=== PATIENT | female | born 1950 | race Caucasian/White ===

== ENCOUNTER 2016-11-09 16:02 | Inpatient (IN) | payer OTHER, MEDICARE ==
[~2016-11-09] VITALS: Ht 154.9 cm; Wt 63.5 kg
[2016-11-09 16:00] VITALS: O2SAT 100
[2016-11-09] MEDS ORDERED: PROPOFOL 1000 MG/100 ML INJ 100 ML ONE (16:07)
[2016-11-09] MEDS ORDERED: ceFAZolin 2 GM PREMIX 50 ML ONE (16:15)
[2016-11-09 16:27] LABS: I-STAT POTASSIUM 4.5 MMOL/L (3.5-4.9)
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
[2016-11-09 16:31] LABS: BASOPHIL # 0.1 TH/MM3 (0-0.2); BASOPHIL % 0.7 % (0.0-2.0); EOSINOPHIL # 0.1 TH/MM3 (0-0.4); EOSINOPHIL % 1.2 % (0.0-4.0); HEMO FLAGS DIFF FINAL; LYMPHOCYTE # 2.5 TH/MM3 (1.0-4.8); MEAN CELL VOLUME 89.7 FL (80.0-100.0); MEAN CORPUSCULAR HEMOGLOBIN 30.6 PG (27.0-34.0); MEAN CORPUSCULAR HGB CONC 34.1 % (32.0-36.0); MONO % 6.2 % (0.0-8.0); NEUT % 69.9 % (16.0-70.0); PLATELET COUNT 271 TH/MM3 (150-450); RED BLOOD COUNT 4.12 MIL/MM3 (4.00-5.30); RED CELL DISTRIBUTION WIDTH 13.4 % (11.6-17.2); WHITE BLOOD COUNT 11.4 TH/MM3 (4.0-11.0)
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
[2016-11-09 16:40] VITALS: BP 145/86; PULSE 75; RESP 18; O2SAT 98
[2016-11-09 16:41] VITALS: O2SAT 97
[2016-11-09] MEDS ORDERED: IOHEXOL 350 MG/ML 10 ML VIAL (for RAD DIAG) IV ONE (16:41)
[2016-11-09] MEDS ORDERED: ceFAZolin 2 GM PREMIX 50 ML IV STA (16:44)
[2016-11-09] MEDS ORDERED: DIPHTH/TETANUS/ACEL PERTUSSIS (BOOSTER) 0.5 ML VIAL/PFS IM ONE (16:44)
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
[2016-11-09] MEDS ORDERED: SIMV80TA PO (16:45)
[2016-11-09] MEDS ORDERED: ALPR0.25 PO (16:45)
[2016-11-09] MEDS ORDERED: ASPI1TAB69 PO (16:45)
[2016-11-09] MEDS ORDERED: LISI10TA3 PO (16:45)
[2016-11-09] MEDS ORDERED: PARO20TA2 PO (16:45)
[2016-11-09 16:50] LABS: APTT (PATIENT) 18.4 SEC (24.3-30.1); INTERNATIONAL NORMALIZED RATIO 0.9 RATIO; PROTHROMBIN TIME - PATIENT 9.8 SEC (9.8-11.6)
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
[2016-11-09] MEDS ORDERED: MORPHINE SULFATE 4 MG/ML INJ IV PUSH ONE (17:45)
[2016-11-09] MEDS ORDERED: ENALAPRILAT 1.25 MG/ML VIAL IV PRN (17:45)
[2016-11-09] MEDS ORDERED: SODIUM CHLORIDE 0.9% FLUSH 10 ML FLUSH IV FLUSH PRN (17:45)
[2016-11-09] MEDS ORDERED: ACETAMINOPHEN/HYDROcodone 325 MG/5 MG TAB PO PRN ×2 (17:45)
[2016-11-09 18:03] VITALS: BP 133/83; PULSE 74; RESP 18; O2SAT 94
[2016-11-09] MEDS: SODIUM CHLOR 0.9% 1000 ML INJ 1,000 ML IV SCH (18:28)
[2016-11-09] MEDS: PANTOPRAZOLE SODIUM 40 MG VIAL IVP SCH (18:28)
[2016-11-09 20:35] VITALS: BP 133/76; PULSE 75; RESP 21; O2SAT 96
[2016-11-09] MEDS: DOCUSATE SODIUM 100 MG CAP PO SCH (20:59)
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
[2016-11-10] VITALS (9 sets, daily range): BP systolic 86–120; BP diastolic 56–81; PULSE 67–87; RESP 16–19; TEMP 96.3–97.4; O2SAT 94–97
[2016-11-10] MEDS: MORPHINE SULFATE 4 MG/ML INJ IV PRN ×2 (01:56→08:25)
[2016-11-10] MEDS: ONDANSETRON HCL 4 MG/2 ML VIAL IV PRN ×2 (01:57→08:25)
[2016-11-10] MEDS: SODIUM CHLOR 0.9% 1000 ML INJ 1,000 ML IV SCH ×2 (03:38→13:18)
[2016-11-10] MEDS ORDERED: CHLORHEXIDINE GLUCONATE 2 % 1 PACK (2 CLOTHS) TOPICAL PRN (04:30)
[2016-11-10] MEDS ORDERED: SODIUM CHLORID 0.9% 500 ML IV PRN (04:30)
[2016-11-10] MEDS ORDERED: LACTATED RINGER'S 1000 ML IV PRN (04:30)
[2016-11-10] MEDS ORDERED: POVIDONE IODINE 5% (ANTISEPSIS KIT) 4 APPLICATIONS EACH NARE PRN (04:30)
[2016-11-10] MEDS ORDERED: INSULIN HUMAN REGULAR 1,000 UNITS/10 ML VIAL SQ PRN (04:30)
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
[2016-11-10 06:25] LABS: AUTOMATED NEUTROPHIL # 4.6 TH/MM3 (1.8-7.7); BASOPHIL % 0.4 % (0.0-2.0); EOSINOPHIL # 0.2 TH/MM3 (0-0.4); EOSINOPHIL % 2.3 % (0.0-4.0); HEMO FLAGS DIFF FINAL; LYMPH % 26.8 % (9.0-44.0); MEAN CELL VOLUME 89.6 FL (80.0-100.0); MEAN CORPUSCULAR HEMOGLOBIN 30.8 PG (27.0-34.0); MEAN CORPUSCULAR HGB CONC 34.4 % (32.0-36.0); MONO % 9.4 % (0.0-8.0); NEUT % 61.1 % (16.0-70.0); PLATELET COUNT 222 TH/MM3 (150-450); RED BLOOD COUNT 3.57 MIL/MM3 (4.00-5.30); RED CELL DISTRIBUTION WIDTH 13.6 % (11.6-17.2); WHITE BLOOD COUNT 7.5 TH/MM3 (4.0-11.0)
[2016-11-10 06:45] LABS: ALKALINE PHOSPHATASE 64 U/L (45-117); ALT (GPT) 50 U/L (10-53); ANION GAP 5 MEQ/L (5-15); AST (GOT) 101 U/L (15-37); BICARBONATE 24.8 MEQ/L (21.0-32.0); BLOOD UREA NITROGEN 10 MG/DL (7-18); CHLORIDE 109 MEQ/L (98-107); GLOMERULAR FILTRATION RATE 83 ML/MIN (>89); POTASSIUM 4.1 MEQ/L (3.5-5.1); SODIUM (NA) 139 MEQ/L (136-145); TOTAL BILIRUBIN ADULT 0.5 MG/DL (0.2-1.0)
[2016-11-10] MEDS: DOCUSATE SODIUM 100 MG CAP PO SCH (08:32)
[2016-11-10] MEDS: DOCUSATE SODIUM 50 MG/SENNA 8.6 MG TAB PO SCH ×3 (09:13→21:53)
--- NOTE | 2016-11-10 10:31 | RADRPT ---
EXAM DATE/TIME: 11/10/2016 09:43 [facility] COMPARISON: CT THORAX W CONTRAST, November 09, 2016, 16:21. CHEST SINGLE AP, November 09, 2016, 15:56. INDICATIONS : Rib fractures. MEDICAL HISTORY : None. SURGICAL HISTORY : None. ENCOUNTER: Subsequent ACUITY: 2 days PAIN SCORE: 10/10 LOCATION: Bilateral chest FINDINGS: Portable AP view of the chest demonstrates a normal-sized cardiac silhouette. There is elevation the right hemidiaphragm. There are linear opacities at both lung bases. No effusion, consolidation, or pn eumothorax is identified. The bones and soft tissues demonstrate no acute finding. No rib fracture is identified. CONCLUSION: 1. No rib fracture is identified. Comparing with prior CT also demonstrates no definite rib fracture. 2. Atelectasis at both lung bases. Harrison Jennings MD on November 10, 2016 at 10:27 Board Certified Radiologist. This report was verified electronically.
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
[2016-11-10] MEDS ORDERED: SIMVASTATIN 80 MG PO SCH (11:15)
[2016-11-10] MEDS: LISINOPRIL 10 MG TAB PO SCH (11:36)
[2016-11-10] MEDS: PARoxetine HCL 20 MG TAB PO SCH (11:36)
[2016-11-10] MEDS ORDERED: PROPOFOL 200 MG/20 ML AMP IV ONE (12:00)
[2016-11-10] MEDS ORDERED: PHENYLEPH/NS 1000 MCG/10 ML SYR IV ONE (12:00)
[2016-11-10] MEDS ORDERED: ONDANSETRON HCL 4 MG/2 ML VIAL IV PUSH ONE (12:00)
[2016-11-10] MEDS ORDERED: NEOSTIGMINE 3 MG/3 ML SYR IV ONE (12:00)
[2016-11-10] MEDS ORDERED: ePHEDrine/NS 25 MG/5 ML SYR IV ONE (12:00)
[2016-11-10] MEDS: POLYETHYLENE GLYCOL 17 GM PKG PO SCH (13:00)
[2016-11-10] MEDS ORDERED: FAMOTIDINE 20 MG/2 ML VIAL ONE (13:06)
[2016-11-10] MEDS ORDERED: ACETAMINOPHEN 1000 MG/100 ML VIAL IV ONE (13:06)
[2016-11-10] MEDS ORDERED: DEXAMETHASONE SOD PHOS 4 MG/ML VIAL ONE (13:07)
[2016-11-10] MEDS ORDERED: MIDAZOLAM HCL 2 MG/2 ML VIAL ONE (13:07)
[2016-11-10] MEDS ORDERED: fentaNYL CITRATE 250 MCG/5 ML AMP ONE (13:07)
[2016-11-10] MEDS ORDERED: VANCOMYCIN HCL 1000 MG VIAL OTHER ONE (13:51)
[2016-11-10] MEDS ORDERED: ceFAZolin INJ 1,000 MG VIAL IV ONE (14:01)
[2016-11-10] MEDS ORDERED: GENTAMICIN SULFATE 80 MG/2 ML VIAL IRRIGATION ONE (14:04)
--- NOTE | 2016-11-10 14:59 | HHI.PR ---
Subjective Subjective Notes Awaiting OR for ankle fx repair Complains of right rib pain Objective Vitals/I&O Vital Signs Date Time Temp Pulse Resp B/P Pulse Ox O2 Delivery O2 Flow Rate FiO2 11/10/16 12:00 97.0 70 18 120/76 95 11/10/16 08:12 Nasal Cannula 2.00 Labs Laboratory Tests Test 11/09/16 11/10/16 16:10 05:58 White Blood Count 11.4 7.5 Red Blood Count 4.12 3.57 Hemoglobin 12.6 11.0 Bedside Hemoglobin 12.9 Hematocrit 37.0 32.0 Bedside Hematocrit 38.0 Mean Corpuscular Volume 89.7 89.6 Mean Corpuscular Hemoglobin 30.6 30.8 Mean Corpuscular Hemoglobin 34.1 34.4 Concent Red Cell Distribution Width 13.4 13.6 Platelet Count 271 222 Mean Platelet Volume 6.9 6.7 Neutrophils (%) (Auto) 69.9 61.1 Lymphocytes (%) (Auto) 22.0 26.8 Monocytes (%) (Auto) 6.2 9.4 Eosinophils (%) (Auto) 1.2 2.3 Basophils (%) (Auto) 0.7 0.4 Neutrophils # (Auto) 8.0 4.6 Lymphocytes # (Auto) 2.5 2.0 Monocytes # (Auto) 0.7 0.7 Eosinophils # (Auto) 0.1 0.2 Basophils # (Auto) 0.1 0.0 CBC Comment DIFF FINAL DIFF FINAL Differential Comment Prothrombin Time 9.8 Prothromb Time International 0.9 Ratio Activated Partial 18.4 Thromboplast Time Bedside Sodium 137 Bedside Potassium 4.5 Bedside Chloride 105 Bedside Blood Urea Nitrogen 19 Bedside Creatinine 0.6 Bedside Glucose 128 Blood Type AB NEGATIVE Antibody Screen NEGATIVE Sodium Level 139 Potassium Level 4.1 Chloride Level 109 Carbon Dioxide Level 24.8 Anion Gap 5 Blood Urea Nitrogen 10 Creatinine 0.62 Estimat Glomerular Filtration 83 Rate Random Glucose 93 Calcium Level 8.0 Total Bilirubin 0.5 Aspartate Amino Transf 101 (AST/SGOT) Alanine Aminotransferase 50 (ALT/SGPT) Alkaline Phosphatase 64 Total Protein 5.9 Albumin 3.1 Radiology Last Impressions Chest X-Ray 11/10/16 0000 Signed Impressions: Service Date/Time: Thursday, November 10, 2016 09:43 - CONCLUSION: 1. No rib fracture is identified. Comparing with prior CT also demonstrates no definite rib fracture. 2. Atelectasis at both lung bases. Harrison Jennings MD Pelvis X-Ray 11/09/16 1615 Signed Impressions: Service Date/Time: Wednesday, November 09, 2016 15:56 - CONCLUSION: Negative trauma study. Alber Lopez MD Head CT 11/09/161614 Signed Impressions: Service Date/Time: Wednesday, November 09, 2016 16:17 - CONCLUSION: Negative trauma study. Alber Lopez MD Chest CT 11/09/161614 Signed Impressions: Service Date/Time: Wednesday, November 09, 2016 16:21 - CONCLUSION: 1. Atelectasis in the dependent portions of the lung bases. There is no pneumothorax. 2. No evidence of visceral injury. Alber Lopez MD ADDENDUM: This case was reviewed to evaluate for possible rib fractures. The original trauma chest x-ray indicated bilateral rib fractures. However, none are identified on this original chest CT report. After detailed review of the ribs on the current examination, no rib fracture is visualized. Harrison Jennings MD Cervical Spine CT 11/09/165 Signed Impressions: Service Date/Time: Wednesday, November 09, 2016 16:18 - CONCLUSION: Negative trauma CT. Alber Lopez MD Abdomen/Pelvis CT 11/09/161614 Signed Impressions: Service Date/Time: Wednesday, November 09, 2016 16:21 - CONCLUSION: 1. Distal infrarenal abdominal aortic aneurysm measuring up to 3.5 x 3.4 cm. 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 2. No evidence of acute visceral injury. 3. Bilateral pars defects at the L5-S1 level with grade 1 anterospondylolisthesis. Alber Lopez MD Tibia/Fibula X-Ray 11/09/16 0000 Signed Impressions: Service Date/Time: Wednesday, November 09, 2016 15:56 - CONCLUSION: Fracture dislocation of the ankle as described. Alber Lopez MD Ankle X-Ray 11/09/16 0000 Signed Impressions: Service Date/Time: Wednesday, November 09, 2016 15:56 - CONCLUSION: Reduction of the previously noted fracture dislocation. Alber Lopez MD Narrative Exam GENERAL: 59-year-old well-nourished, well developed female lying in bed. SKIN: Warm and dry. HEAD: Normocephalic. ENT: No nasal bleeding or discharge. Mucous membranes pink and moist. NECK: Trachea midline. No JVD. CARDIOVASCULAR: Regular rate and rhythm. RESPIRATORY: No accessory muscle use. Lungs clear to auscultation. Breath sounds equal bilaterally. GASTROINTESTINAL: Abdomen soft, non-tender, nondistended. + BS. MUSCULOSKELETAL: Extremities without cyanosis, or edema. LLE soft splint in place. Good cap refill, sensation LLE. NEUROLOGICAL: Awake and alert. Normal speech. A/P Assessment and Plan INJURIES: LEFT ankle fx BILAT atelectasis vs aspiration Incidental AAA 3.5 x 3.4cm and Right common iliac artery aneurysm 2.3cm PMHx: Hyperlipidemia, hypertension, depression Diet: NPO Pulmonary: IS, encourage patient use Pain: [place] 1-2 tabs, IV Morphine. Pain controlled. Activity: BR. PT ordered. GI: IV Protonix Bowel: Yolanda-colace, Miralax. No BM yet DVT: SCDs Home medications resumed Initial CXR indicated bilateral rib fxs. Repeated CXR today is negative for rib fxs. Orthopedics plans to repair left ankle fracture today. Hyperglycemialow dose SSI. Consult vascular surgery to evaluate AAA and iliac artery aneurysm Plan of care discussed with patient at bedside. The exam, history, and the medical decision-making described in the above note were completed with the assistance of the mid-level provider. I reviewed and agree with the findings presented. I attest that I had a [id number] encounter with the patient on the same day, and personally performed and documented my assessment and findings in the medical record. Lila Rush Nov 10, 2016 14:59 Eugene Johnson MD Nov 11, 2016 07:39
[2016-11-10] MEDS ORDERED: Post-op Orders (for Pharmacy) MISC XX ONE (15:00)
--- NOTE | 2016-11-10 15:01 | PD.OP ---
cc: Leonard Cooley MD Operative Report Date of Surgery: Nov 10, 2016 Preoperative Diagnosis: Displaced left ankle trimalleolar fracture Postoperative Diagnosis: Same Procedure: Open reduction internal fixation left ankle fracture, open reduction internal fixation left ankle syndesmosis Anesthesia: Gen. Surgeon: Leonard Cooley Bow Maker Production(s): Alverto Menjivar PA-C The surgical procedure was assisted by my physician outpatient physical therapist assistant. My P.A. presence was necessary throughout this case for the manipulation and positioning of the surgical extremity. My P.A. was assisting me throughout the duration of this procedure. The skill set of a physician outpatient physical therapist assistant was medically necessary to complete this procedure. During the surgical case the game technician was working at the back table and the physician outpatient physical therapist assistant was directly assisting me. Operation and Findings: Patient was seen and evaluated preoperatively and found to have a displaced left trimalleolar ankle fracture. Informed consent was obtained after a detailed discussion of risk and benefits of surgery. The operative site was marked. Patient was brought to the OR, placed on the OR table, and given IV sedation and general endotracheal anesthesia. IV antibiotics were given preoperatively. A timeout procedure was performed. The left leg was prepped with alcohol followed by Hibiclens and draped in the usual sterile fashion. Attention was turned towards the distal fibula. A four-inch incision was made over the distal fibula. The subcutaneous tissue was dissected with Bovie. The fracture site was visualized. The fracture site was cleaned with curets. The fracture was now reduced. The fracture keyed into anatomic alignment. K-wires were used to h old provisional fixation. A lag screw was placed to compress fracture. A Synthes plate was selected. The plate was provisionally held to bone with K-wires. 3.5 cortical screws were used to compress the plate to bone. Multiple screws were placed above and below the fracture. Next attention was turned towards the medial malleolus. The medial malleolus supposed through a 3 cm incision. Saphenous vein was retracted. Fracture was visualized. Fracture was cleaned with curettes. Fracture was now reduced and keyed into anatomic alignment. K wires were used to hold provisional fixation. 2 guidepins for the 4.0 cannulated screws were placed in a retrograde fashion across the fracture. Fluoroscopy was used to confirm guidepin placement. Cannulated drill was placed over the guidepin. 2 appropriate length screws were now placed. Good compression was applied. Fluoroscopy confirmed well aligned fracture with well-placed hardware. The posterior malleolus fracture was visualized under fluoroscopy. It was a small avulsion fracture with minimal articular surface. This was left in place. Next, attention was turned to the syndesmosis. The syndesmosis was stressed. There was clear widening of the syndesmosis with external rotation of the ankle. The syndesmosis was now held in a reduced position with the ankle in neutral position. Two Synthes 4.0 cortical screws were now placed through the fibula plate into the tibia. Fluoroscopy confirmed appropriate screw placement with well-aligned syndesmosis. Incisions were thoroughly irrigated. The subcutaneous tissue was closed with 3-0 PDS and the skin was closed with 3-0 nylon. Sterile dressings were applied. A well molded well-padded splint was applied. The patient was transferred to Recovery in stable condition. Needle and sponge counts were correct. Leonard Cooley MD Nov 10, 2016 15:01
[2016-11-10] MEDS ORDERED: *RESP: ALBUTEROL 2.5 MG/3 ML NEB (PRN) PERIprocedural Use ONLY NEB ONE (15:19)
--- NOTE | 2016-11-10 15:42 | RADRPT ---
EXAM DATE/TIME: 11/10/2016 13:06 [facility] COMPARISON: ANKLE LEFT LIMITED (AP&LAT), November 09, 2016, 15:56. INDICATIONS : ORIF left ankle. MEDICAL HISTORY : None. SURGICAL HISTORY : None. ENCOUNTER: Subsequent ACUITY: 2 days PAIN SCORE: Non-responsive. LOCATION: Left ankle. FINDINGS: AP and lateral views of the left ankle were obtained and demonstrate that the patient is status post open rigid internal fixation with screw-plate fixation device transfixing the distal fibular fracture . 2 lag screws extend through the medial malleolus. The fracture fragments are in anatomic alignment. CONCLUSION: Status post open rigid internal fixation. Alber Lopez MD on November 10, 2016 at 15:36 Board Certified Radiologist. This report was verified electronically.
[2016-11-10] MEDS ORDERED: DO NOT ADM ANY ANTICOAGULANT DRUGS PRN (15:45)
[2016-11-10] MEDS ORDERED: MORPHINE SULFATE 4 MG/ML INJ IV PUSH PRN (16:00)
[2016-11-10] MEDS: PANTOPRAZOLE SODIUM 40 MG VIAL IVP SCH (18:21)
[2016-11-10] MEDS: ceFAZolin 2 GM PREMIX 50 ML IV SCH (21:53)
[2016-11-11] VITALS (7 sets, daily range): BP systolic 107–125; BP diastolic 68–83; PULSE 71–88; RESP 15–18; TEMP 96.8–97.9; O2SAT 91–96
[2016-11-11] MEDS: ACETAMINOPHEN/HYDROcodone 325 MG/7.5 MG TAB PO PRN ×3 (01:24→22:20)
[2016-11-11] MEDS: ONDANSETRON HCL 4 MG/2 ML VIAL IV PRN ×2 (02:50→09:01)
[2016-11-11] MEDS: SODIUM CHLOR 0.9% 1000 ML INJ 1,000 ML IV SCH ×3 (03:25→18:45)
[2016-11-11] MEDS: ceFAZolin 2 GM PREMIX 50 ML IV SCH (05:38)
[2016-11-11] MEDS ORDERED: VITA2000 PO (06:56)
[2016-11-11] MEDS ORDERED: HYDR-3288 PO (06:56)
[2016-11-11] MEDS ORDERED: CALCTAB19 PO (06:56)
[2016-11-11] MEDS ORDERED: ERGO1CAP30 PO (06:56)
[2016-11-11] MEDS ORDERED: WALKER/ADULT/FO1 MIS (06:56)
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
[2016-11-11] MEDS: PARoxetine HCL 20 MG TAB PO SCH (08:53)
[2016-11-11] MEDS: LISINOPRIL 10 MG TAB PO SCH (08:53)
[2016-11-11] MEDS: DOCUSATE SODIUM 50 MG/SENNA 8.6 MG TAB PO SCH ×2 (08:53→20:28)
[2016-11-11] MEDS: POLYETHYLENE GLYCOL 17 GM PKG PO SCH (08:53)
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
[2016-11-11] MEDS ORDERED: SUMAtriptan SUCCINATE 50 MG TAB PO PRN (14:00)
[2016-11-11] MEDS: METHOCARBAMOL 500 MG TAB PO SCH ×2 (14:40→22:19)
--- NOTE | 2016-11-11 14:52 | PD.CAR.PN ---
CVT Progress Note Subjective/Hospital Course: Patient with moderate size AAA and R common iliac aneurysm measuring 3.5 cm and 2.8 cm respectively Patient does not need any intervention at this time. Will Fu in about 3 months in my office. Full consult dictated J Objective: Vital Signs Date Time Temp Pulse Resp B/P Pulse Ox O2 Delivery O2 Flow Rate FiO2 11/11/16 08:00 96.9 75 16 110/78 91 11/11/16 04:35 97.9 88 15 125/83 94 11/11/16 00:25 97.3 86 16 107/69 93 11/10/16 20:51 94 Nasal Cannula 2.00 11/10/16 20:30 92/58 11/10/16 19:50 97.4 86 16 86/56 94 11/10/16 17:50 96.3 87 19 91/62 95 11/10/16 17:30 81 20 101/61 93 Nasal Cannula 4 11/10/16 17:00 84 20 100/64 93 Nasal Cannula 4 11/10/16 16:30 78 15 102/62 93 Nasal Cannula 4 11/10/16 16:15 72 18 96/59 93 Nasal Cannula 4 11/10/16 16:00 72 15 96/59 92 Simple Mask 6 11/10/16 15:45 76 15 96/57 92 Simple Mask 6 11/10/16 15:29 97.9 82 15 112/66 90 Simple Mask 6 Result Diagram: 11/10/16 0558 11/10/16 0558 Fidel Mendoza MD Nov 11, 2016 14:52
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
[2016-11-11] MEDS: PANTOPRAZOLE SOD 40 MG DELAYED RELEASE TAB PO SCH (18:43)
--- NOTE | 2016-11-11 23:07 | RADRPT ---
EXAM DATE/TIME: 11/11/2016 21:46 [place] COMPARISON: No previous studies available for comparison. INDICATIONS : Right carotid bruit. MEDICAL HISTORY : Hypercholesterolemia. Gastroesophageal reflux disease. Osteoporosis. Hhypertension. Dypsnea. Arthriti s. Hiatal hernia. Neck pain. Migraines. Substance use. Post traumatic stress disorder. Anxiety. SURGICAL HISTORY : Cholecystectomy. Hysterectomy. ENCOUNTER: Initial ACUITY: 1 day PAIN SCORE: 8/10 LOCATION: Bilateral neck PEAK SYSTOLIC VELOCITIES (cm/sec): ICA/CCA RATIO: Right: 1.5 Left: 1.2 ICA: Right: 118 Left: 128 CCA: Right: 78 Left: 110 ECA: Right: 89 Left: 48 VERTEBRAL: Right: 86 antegrade Left: 76 antegrade Elevated flow velocities and ICA/CCA ratios have been found to correlate with increased degrees of vessel stenosis, calculated as percentage of diameter relative to a normal segment of distal ICA/CCA FINDINGS: RIGHT CAROTID: Mild to moderate plaque of the bulb and proximal internal carotid artery with 30% or less narrowing. LEFT CAROTID: Mild to moderate plaque in the bulb and proximal internal carotid artery with 30% or less narrowing. VERTEBRAL ARTERIES: Antegrade flow is seen in both vertebral arteries. MISCELLANEOUS: None. CONCLUSION: Mild to moderate bilateral carotid bifurcation atherosclerotic plaque without hemodynamically signifi cant narrowing. Harrison Sarabia MD on November 11, 2016 at 23:04 Board Certified Radiologist. This report was verified electronically.
[2016-11-12 00:35] VITALS: BP 109/69; PULSE 78; RESP 16; TEMP 97.8; O2SAT 94
[2016-11-12] MEDS: ACETAMINOPHEN/HYDROcodone 325 MG/7.5 MG TAB PO PRN ×2 (04:04→22:47)
[2016-11-12] MEDS: SODIUM CHLOR 0.9% 1000 ML INJ 1,000 ML IV SCH ×2 (05:10→14:07)
[2016-11-12] MEDS: METHOCARBAMOL 500 MG TAB PO SCH ×3 (05:22→22:46)
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
[2016-11-12 08:00] VITALS: BP 105/70; PULSE 68; RESP 21; TEMP 97.5; O2SAT 92
[2016-11-12] MEDS: DOCUSATE SODIUM 50 MG/SENNA 8.6 MG TAB PO SCH ×2 (08:22→20:06)
[2016-11-12] MEDS: PARoxetine HCL 20 MG TAB PO SCH (08:22)
[2016-11-12] MEDS: LISINOPRIL 10 MG TAB PO SCH (08:22)
[2016-11-12] MEDS: POLYETHYLENE GLYCOL 17 GM PKG PO SCH (08:22)
[2016-11-12 12:00] VITALS: BP 110/80; PULSE 70; RESP 20; TEMP 98.2; O2SAT 93
[2016-11-12 16:00] VITALS: BP 115/70; PULSE 70; RESP 20; TEMP 97.6; O2SAT 92
[2016-11-12] MEDS: PANTOPRAZOLE SOD 40 MG DELAYED RELEASE TAB PO SCH (17:41)
[2016-11-12 20:00] VITALS: BP 133/77; PULSE 72; RESP 20; TEMP 98.1; O2SAT 94
[2016-11-13 00:10] VITALS: BP 107/69; PULSE 81; RESP 17; TEMP 99.4; O2SAT 93
[2016-11-13] MEDS: METHOCARBAMOL 500 MG TAB PO SCH ×2 (06:05→14:57)
[2016-11-13] MEDS: ACETAMINOPHEN/HYDROcodone 325 MG/7.5 MG TAB PO PRN (06:05)
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
[2016-11-13 07:31] VITALS: BP 120/76; PULSE 72; RESP 18; TEMP 98.2; O2SAT 92
[2016-11-13] MEDS: MAGNESIUM HYDROXIDE SUSP 30 ML CUP PO PRN ×2 (08:22→14:57)
[2016-11-13] MEDS: DOCUSATE SODIUM 50 MG/SENNA 8.6 MG TAB PO SCH (08:22)
[2016-11-13] MEDS: LISINOPRIL 10 MG TAB PO SCH (08:22)
[2016-11-13] MEDS: POLYETHYLENE GLYCOL 17 GM PKG PO SCH (08:23)
[2016-11-13] MEDS: PARoxetine HCL 20 MG TAB PO SCH (08:23)
[2016-11-13 11:21] VITALS: BP 109/71; PULSE 70; RESP 18; TEMP 97.7; O2SAT 95
[2016-11-13] MEDS: SODIUM CHLOR 0.9% 1000 ML INJ 1,000 ML IV SCH (11:38)
[2016-11-13] MEDS ORDERED: diphenhydrAMINE HCL 25 MG CAP PO PRN (12:45)
[2016-11-13 15:51] VITALS: BP 115/83; PULSE 84; RESP 18; TEMP 97.2; O2SAT 92
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
== END 2016-11-13 17:01 | DRG 493 ==
LOC: NEPI 16:02 → NEDH 16:24 → UNDOADMIN 16:24 → EDBD 16:24 → NEDA 16:24 → NEDH 20:26 → N06B 11-10 01:00
PROVIDERS: ADMIT Orthopaedic Surgery Orthopaedic Trauma; ATTEND Orthopaedic Surgery Orthopaedic Trauma
PROC: 0QSH04Z Reposition Left Tibia with Internal Fixation Device, Open Approach (ICD-10-PCS; 2016-11-10)
PROC: 0QSH04Z Reposition Left Tibia with Internal Fixation Device, Open Approach (ICD-10-PCS; 2016-11-10)
PROC: 0QSK04Z Reposition Left Fibula with Internal Fixation Device, Open Approach (ICD-10-PCS; principal; 2016-11-10 13:33)
DX: S82.852A Displaced trimalleolar fracture of left lower leg, initial encounter for closed fracture (principal); S22.49XA Multiple fractures of ribs, unspecified side, initial encounter for closed fracture; I72.3 Aneurysm of iliac artery; I10 Essential (primary) hypertension; E78.5 Hyperlipidemia, unspecified; F12.90 Cannabis use, unspecified, uncomplicated; F17.210 Nicotine dependence, cigarettes, uncomplicated; I71.4 Abdominal aortic aneurysm, without rupture; V43.52XA Car driver injured in collision with other type car in traffic accident, initial encounter; Y92.410 Unspecified street and highway as the place of occurrence of the external cause
CPT/HCPCS: 27810; 70450; 71010; 71260; 72125; 72170; 73600; 74177; 76000; 80053; 82435; 82565; 82947; 84132; 84295; 84520; 85025; 85610; 85730; 86850; 86900; 86901; 90471; 90715; 93880; 94150; 94664; 96374; 96375; 99152; 99291; C1713; C9113; G0390; J0131; J0690; J1100; J1580; J2250; J2270; J2370; J2405; J2710; J3010; J3370; J7030; J7613; L0150; Q9967